=== PATIENT | female | born 1980 | race Caucasian/White ===

== ENCOUNTER → 2016-12-12 | Outpatient (CLI) | payer OTHER ==
[2015-12-08 10:17] VITALS: BP 128/78
[~2016-12-12] MED LIST: ALPR1TAB6 PO; AMIT25TA PO; DULO20CA PO; LISI1TAB3 PO; METO25TA2 PO; NORE0.356 PO; OMEP40CA5 PO; TRAZ100T12 PO
--- NOTE | 2016-12-12 14:01 | KCIC ---
DATE: 12/12/2016 EXAM: MAMMO ANDERSON SLIME SÁNCHEZAT, BREAST RIGHT HISTORY: Breast lump COMPARISON: None available This study was interpreted with the benefit of Computerized Aided Detection (CAD). FINDINGS: Breast Density: DENSE The breast Parenchyma is dense, which could reduce the sensitivity of mammography. Breast parenchyma level density D.. There is a nodule or cyst identified in the right breast at 7:00 o'clock position 1 cm from the nipple. Targeted ultrasound the right breast at this level demonstrates a round 5.7 mm simple appearing cyst with the posterior acoustic enhancement. IMPRESSION: Benign findings BI-RADS CATEGORY: 2 BENIGN FINDING RECOMMENDED FOLLOW-UP: CLIN FOLLOW UP IMAGING CLINICALLY INDICATED PQRS compliance statement: Patient information was entered into a reminder system with a target due date when patient is due for a screening mammogram for the next mammogram. Mammography is a sensitive method for finding small breast cancers, but it does not detect them all and is not a substitute for careful clinical examination. A negative mammogram does not negate a clinically suspicious finding and should not result in delay in biopsying a clinically suspicious abnormality. "Our facility is accredited by the [employer] Mammography Program."
== END | disposition home or self-care (01) ==
LOC: KCIC MAMMO 09:53
PROVIDERS: ATTEND Obstetrics & Gynecology
DX: N63.10 Unspecified lump in the right breast, unspecified quadrant (principal)
CPT/HCPCS: 76641; G0204; G0279; 77062; 77066

== ENCOUNTER 2018-12-24 19:02 | Emergency (ER) | payer OTHER ==
[~2018-12-24] VITALS: Ht 170.2 cm; Wt 115.7 kg
[~2018-12-24 19:02] MED LIST changes: +LISI1TAB23 PO; -LISI1TAB3 PO; +OMEP40CA45 PO; -OMEP40CA5 PO; +TRAZ-86 PO; -TRAZ100T12 PO
[2018-12-24] MEDS ORDERED: DEXAMETHASONE SOD PHOS 4 MG/ML VIAL IVP ONE (19:30)
[2018-12-24] MEDS ORDERED: IV NORMAL SALINE 1000ML BAG 1,000 ML IV ONE (19:30)
[2018-12-24] MEDS ORDERED: ONDANSETRON PF 4 MG/2 ML VIAL. IVP ONE (19:30)
[2018-12-24] MEDS ORDERED: diphenhydrAMINE 50 MG/ML VIAL IVP ONE (19:30)
[2018-12-24] MEDS ORDERED: KETOROLAC 15 MG/ML VIAL. IVP ONE (19:30)
[2018-12-24 19:59] LABS: BASO # 0.1 x10^3/uL (0.0-0.2); BASO % 1 % (0-3); EOS # 0.3 x10^3/uL (0.0-0.7); EOS % 4 % (0-3); HEMATOCRIT 43.4 % (36.0-47.0); HEMOGLOBIN 14.8 g/dL (12.0-15.5); LYMPH # 1.9 x10^3/uL (1.0-4.8); LYMPH % 24 % (24-48); MEAN CORPUSCULAR HEMOGLOBIN 34 pg (25-35); MEAN CORPUSCULAR HGB CONC 34 g/dL (31-37); MEAN CORPUSCULAR VOLUME 99 fL (79-100); MONO # 0.6 x10^3/uL (0.0-1.1); MONO % 7 % (0-9); NEUT # 5.3 x10^3/uL (1.8-7.7); NEUT % 65 % (31-73); PLATELET COUNT 224 x10^3/uL (140-400); RED BLOOD COUNT 4.38 x10^6/uL (3.50-5.40); RED CELL DISTRIBUTION WIDTH 14.1 % (11.5-14.5); WHITE BLOOD COUNT 8.3 x10^3/uL (4.0-11.0)
[2018-12-24 20:08] LABS: PROTHROMBIN TIME PATIENT 13.8 SEC (11.7-14.0)
[2018-12-24 20:09] LABS: CALCIUM 9.2 mg/dL (8.5-10.1); CREATININE 0.9 mg/dL (0.6-1.0); GFR 70.1; POTASSIUM 3.9 mmol/L (3.5-5.1)
[2018-12-24 20:15] LABS: ALBUMIN 3.3 g/dL (3.4-5.0); ALBUMIN/GLOBULIN RATIO 0.7 (1.0-1.7); MAGNESIUM 1.5 mg/dL (1.8-2.4); TOTAL BILIRUBIN 0.2 mg/dL (0.2-1.0)
[2018-12-24 20:24] LABS: CREATINE KINASE 34 U/L (26-192)
--- NOTE | 2018-12-24 21:00 | RAD ---
CT head without contrast dated 12/24/2018. No comparison available. Clinical data indication: Headache and right arm sensation change. TECHNIQUE: Contiguous axial imaging of the head was performed from skull base to vertex. No contrast administered. One or more of the following individualized dose reduction techniques were utilized for this examination: 1. Automated exposure control 2. Adjustment of the mA and/or kV according to patient size 3. Use of iterative reconstruction technique. FINDINGS: Enlargement of the bifrontal sulci, increased from prior study. Ventricles are stable in caliber. No midline shift or mass effect. There is a small linear band of low density in the parasagittal right parietal lobe that likely represents a remote cortical infarct. Brain parenchyma is of otherwise normal attenuation. No hemorrhage or extra-axial collection. Posterior fossa and brainstem unremarkable. Visualized paranasal sinuses and mastoid air cells are clear. No apparent calvarial abnormality. IMPRESSION: 1. No evidence of acute intracranial hemorrhage or mass. 2. 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 3. 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 Electronically signed by: Jerald Oneal MD (12/24/2018 8:57 PM) [facility]
--- NOTE | 2018-12-24 21:07 | PHYS DOC ---
Past Medical History Past Medical History: Anxiety, Depression, Hypertension, Migraines Past Surgical History: Hysterectomy, Tonsillectomy, Other Additional Past Surgical Histo: KNEE SURGERY, BRAIN BIOPSY, HERNIA SURGERY Additional Information: Nonsmoker Alcohol Use: None Drug Use: None Adult General Chief Complaint Chief Complaint: NEURO SYMPTOMS/DEFICITS HPI HPI 38-year-old female presents with 2 week history of intermittent headache. Patient does have a past medical history of migraine headaches. Patient reports history of chronic neck pain with recent fall striking her face. Patient also recently seen her PCP who thought she might have a sinus infection and recently started her on antibiotics (Augmentin). Patient reports today was having some increased pain in her neck and head combined with right hand tingling and numbness and had presented to the chiropractor for evaluation. Reports her chiropractor became concerned and sent patient to the ER for evaluation. Patient also with history of intracranial hemorrhage secondary to elevated blood pressure. Patient reports she has been compliant with her blood pressure medication and it typically has been doing well. Denies fever or chills. Review of Systems Review of Systems Constitutional: Denies fever or chills Eyes: Denies redness or eye pain HENT: Denies nasal congestion or sore throat Respiratory: Denies cough or shortness of breath Cardiovascular: Denies chest pain or palpitations GI: Denies abdominal pain, nausea, or vomiting : Denies dysuria or hematuria Musculoskeletal: Denies back pain or joint pain Integument: Denies rash or skin lesions Neurologic: Reports headache and numbness/tingling of right hand; denies focal weakness Complete systems were reviewed and found to be within normal limits, except as documented in this note. Current Medications Current Medications Current Medications Medications (Trade) Dose Ordered Sig/Joel Start Time Stop Time Status Last Admin Dose Admin Acetaminophen/ Butalbital/ Caffeine (Fioricet) 2 tab 1X ONCE 12/24/18 22:00 12/24/18 22:01 DC 12/24/18 21:49 2 TAB Dexamethasone Sodium Phosphate (Decadron) 10 mg 1X ONCE 12/24/18 19:30 12/24/18 19:41 DC 12/24/18 20:10 10 MG Diphenhydramine HCl (Benadryl) 25 mg 1X ONCE 12/24/18 19:30 12/24/18 19:41 DC 12/24/18 20:09 25 MG Ketorolac Tromethamine (Toradol 15mg Vial) 15 mg 1X ONCE 12/24/18 19:30 12/24/18 19:41 DC 12/24/18 20:10 15 MG Magnesium Sulfate 50 ml @ 25 mls/hr 1X ONCE 12/24/18 21:30 12/24/18 23:29 12/24/18 21:50 25 MLS/HR Ondansetron HCl (Zofran) 4 mg 1X ONCE 12/24/18 19:30 12/24/18 19:41 DC 12/24/18 20:09 4 MG Sodium Chloride 1,000 ml @ 1,000 mls/hr 1X ONCE 12/24/18 19:30 12/24/18 20:29 DC 12/24/18 20:08 1,000 MLS/HR Allergies Allergies Allergies Coded Allergies Type Severity Reaction Last Updated Verified morphine Allergy Intermediate 12/08/15 Yes prochlorperazine Allergy Intermediate 12/08/15 Yes Physical Exam Physical Exam Constitutional: Well developed, well nourished, no acute distress, non-toxic appearance HENT: Normocephalic, atraumatic, oropharynx moist Eyes: PERRL, EOMI, conjunctiva normal, no discharge, photophobia Neck: Normal range of motion, no midline tenderness, right parasternal tenderness noted, supple Cardiovascular: Heart rate tachycardic, regular rhythm Lungs & Thorax: Bilateral breath sounds clear to auscultation, no wheezing Abdomen: Soft, no tenderness Skin: Warm, dry, no erythema, no rash Extremities: No tenderness, ROM intact, no edema Neurologic: Alert and oriented X 3, normal motor function, decreased sensation to right hand in comparison to left, no focal deficits noted Psychologic: Affect anxious, judgement normal Current Patient Data Vital Signs Vital Signs Date Time Temp Pulse Resp B/P (MAP) Pulse Ox O2 Delivery O2 Flow Rate FiO2 12/24/18 22:11 99 18 94 12/24/18 19:15 98.2 170/109 (129) Room Air 98.2 Lab Values Laboratory Tests Test 12/24/18 19:51 12/24/18 21:00 White Blood Count 8.3 x10^3/uL (4.0-11.0) Red Blood Count 4.38 x10^6/uL (3.50-5.40) Hemoglobin 14.8 g/dL (12.0-15.5) Hematocrit 43.4 % (36.0-47.0) Mean Corpuscular Volume 99 fL (79-100) Mean Corpuscular Hemoglobin 34 pg (25-35) Mean Corpuscular Hemoglobin Concent 34 g/dL (31-37) Red Cell Distribution Width 14.1 % (11.5-14.5) Platelet Count 224 x10^3/uL (140-400) Neutrophils (%) (Auto) 65 % (31-73) Lymphocytes (%) (Auto) 24 % (24-48) Monocytes (%) (Auto) 7 % (0-9) Eosinophils (%) (Auto) 4 % (0-3) H Basophils (%) (Auto) 1 % (0-3) Neutrophils # (Auto) 5.3 x10^3/uL (1.8-7.7) Lymphocytes # (Auto) 1.9 x10^3/uL (1.0-4.8) Monocytes # (Auto) 0.6 x10^3/uL (0.0-1.1) Eosinophils # (Auto) 0.3 x10^3/uL (0.0-0.7) Basophils # (Auto) 0.1 x10^3/uL (0.0-0.2) Prothrombin Time 13.8 SEC (11.7-14.0) Prothrombin Time INR 1.1 (0.8-1.1) Activated Partial Thromboplast Time 28 SEC (24-38) Sodium Level 137 mmol/L (136-145) Potassium Level 3.9 mmol/L (3.5-5.1) Chloride Level 100 mmol/L (98-107) Carbon Dioxide Level 27 mmol/L (21-32) Anion Gap 10 (6-14) Blood Urea Nitrogen 11 mg/dL (7-20) Creatinine 0.9 mg/dL (0.6-1.0) Estimated GFR (Cockcroft-Gault) 70.1 BUN/Creatinine Ratio 12 (6-20) Glucose Level 205 mg/dL (70-99) H Calcium Level 9.2 mg/dL (8.5-10.1) Magnesium Level 1.5 mg/dL (1.8-2.4) L Total Bilirubin 0.2 mg/dL (0.2-1.0) Aspartate Amino Transferase (AST) 121 U/L (15-37) H Alanine Aminotransferase (ALT) 129 U/L (14-59) H Alkaline Phosphatase 138 U/L (46-116) H Creatine Kinase 34 U/L (26-192) Creatine Kinase MB (Mass) < 0.5 ng/mL (0.0-3.6) Creatine Kinase MB Relative Index % (0-4) Troponin I Quantitative < 0.017 ng/mL (0.000-0.055) Total Protein 8.0 g/dL (6.4-8.2) Albumin 3.3 g/dL (3.4-5.0) L Albumin/Globulin Ratio 0.7 (1.0-1.7) L Urine Collection Type Unknown Urine Color Yellow Urine Clarity Clear Urine pH 6.0 Urine Specific [place] 1.010 Urine Protein Negative mg/dL (NEG-TRACE) Urine Glucose (UA) Negative mg/dL (NEG) Urine Ketones (Stick) Negative mg/dL (NEG) Urine Blood Negative (NEG) Urine Nitrite Negative (NEG) Urine Bilirubin Negative (NEG) Urine Urobilinogen Dipstick 1.0 mg/dL (0.2 mg/dL) Urine Leukocyte Esterase Negative (NEG) Urine RBC 0 /HPF (0-2) Urine WBC 1-4 /HPF (0-4) Urine Squamous Epithelial Cells Mod /LPF Urine Bacteria Moderate /HPF (0-FEW) Laboratory Tests 12/24/18 19:51 Laboratory Tests 12/24/18 19:51 EKG EKG @1935 Sinus tachycardia at 118bpm, NO ST elevation, QRS 80ms, QT/QTc 306/431ms Radiology/Procedures Radiology/Procedures PROCEDURE: CT HEAD WO CONTRAST CT head without contrast dated 12/24/2018. No comparison available. Clinical data indication: Headache and right arm sensation change. TECHNIQUE: Contiguous axial imaging of the head was performed from skull base to vertex. No contrast administered. One or more of the following individualized dose reduction techniques were utilized for this examination: 1. Automated exposure control 2. Adjustment of the mA and/or kV according to patient size 3. Use of iterative reconstruction technique. FINDINGS: Enlargement of the bifrontal sulci, increased from prior study. Ventricles are stable in caliber. No midline shift or mass effect. There is a small linear band of low density in the parasagittal right parietal lobe that likely represents a remote cortical infarct. Brain parenchyma is of otherwise normal attenuation. No hemorrhage or extra-axial collection. Posterior fossa and brainstem unremarkable. Visualized paranasal sinuses and mastoid air cells are clear. No apparent calvarial abnormality. IMPRESSION: 1. No evidence of acute intracranial hemorrhage or mass. 2. 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 3. 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 Electronically signed by: Jerald Oneal MD (12/24/2018 8:57 PM) [facility] Course & Med Decision Making Course & Med Decision Making Pertinent Labs and Imaging studies reviewed. (See chart for details) Patient presents with intermittent headache 2 weeks with past medical history of migraine headaches. Patient also with history of chronic neck pain for which she receives chiropractic adjustments. Patient today now with right arm tingling and numbness. Patient reports headache worse. Patient neurologically intact with exception for sensation difference in right hand versus left. NIH SS 1. History of prior intracranial hemorrhage secondary to hypertension. Patients BP elevated upon arrival however patient very anxious and uncomfortable. Symptomatic treatment provided with interval improvement of blood pressure without antihypertensives. CT head without acute process. Labs obtained and posted to chart. Hypomagnesemia addressed. EKG stable. IV fluid hydration given. Patient with interval improvement of both headache and right arm numbness. Concern for possible cervical radiculopathy. Patient stable for discharge with outpatient follow-up with PCP/neurology/pain management. Neurology and pain management referrals provided. Discussed findings and plan with patient, who acknowledges understanding and agreement. Dragon Disclaimer Dragon Disclaimer This electronic medical record was generated, in whole or in part, using a voice recognition dictation system. Departure Departure Impression: Primary Impression: Headache Additional Impressions: Hypomagnesemia Radiculopathy of cervical spine Disposition: 01 HOME, SELF-CARE Condition: IMPROVED Referrals: GRICEL LEAL (PCP) DAVID MUNSON MD, BRIAN N MD Patient Instructions: Cervical Radiculopathy, [id number], Headache, FAQs, Hypomagnesemia Scripts Butalb/Acetaminophen/Caffeine ([id number] 50-325-40) 1 Each Tablet 1 EACH PO Q6HRS PRN for HEADACHE, #14 TAB Prov: JERALD BEARD DO 12/24/18 Orphenadrine Citrate (ORPHENADRINE CITRATE) 100 Mg Tablet.er 100 MG PO BID PRN for MUSCLE PAIN, #14 TAB Prov: JERALD BEARD DO 12/24/18 NIHSS Stroke Scale NIH Stroke Scale: NIH Stroke Scale Response (Comments) Value Level of Consciousness: 0 Alert/Responsive 0 LOC Questions: 0 Answers both correctly 0 LOC Commands: 0 Performs both tasks 0 Best Gaze: 0 Normal 0 Visual: 0 No visual loss 0 Facial Palsy: 0 Normal, symmetrical 0 Motor - Left Arm 0 No drift 0 Motor - Right Arm 0 No drift 0 Motor - Left Leg 0 No drift 0 Motor: Right Leg 0 No drift 0 Limb Ataxia: 0 Absent 0 Sensory: 1 Mid to moderate loss (right hand) 1 Best Language: 0 Normal 0 Dysathria: 0 Normal 0 Extinction and Inattention: 0 Normal 0 Total 1 Problem Qualifiers Primary Impression: Headache Headache type: unspecified Headache chronicity pattern: acute headache Intractability: not intractable Qualified Codes: R51 - Headache JERALD BEARD DO Dec 24, 2018 21:07
[2018-12-24 21:13] LABS: BILIRUBIN,URINE NEGATIVE (NEG); CLARITY,URINE CLEAR; COLOR,URINE YELLOW; NITRITE,URINE NEGATIVE (NEG); PROTEIN,URINE NEGATIVE (NEG-TRACE)
[2018-12-24 21:19] LABS: BACTERIA,URINE MODERATE /HPF (0-FEW); RBC,URINE 0 /HPF (0-2); SQUAMOUS EPITHELIAL CELL,UR MOD /LPF
[2018-12-24] MEDS ORDERED: MAGNESIUM SULFATE 2GM 50 ML IV ONE (21:30)
[2018-12-24] MEDS ORDERED: ORPH100T PO (21:35)
[2018-12-24] MEDS ORDERED: BUTA1TAB23 PO (21:35)
[2018-12-24] MEDS ORDERED: BUTALB/APAP/CAFEIN 50/325/40MG TABLET. PO ONE (22:00)
[2018-12-24 22:11] VITALS: BP 155/93
--- NOTE | 2018-12-25 07:07 | EKG ---
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
== END 2018-12-24 22:52 | disposition home or self-care (01) ==
LOC: ER 19:02
DX: G43.909 Migraine, unspecified, not intractable, without status migrainosus (principal); M54.12 Radiculopathy, cervical region; E83.42 Hypomagnesemia; G89.29 Other chronic pain; I10 Essential (primary) hypertension; F41.9 Anxiety disorder, unspecified; F32.9 Major depressive disorder, single episode, unspecified; Z88.5 Allergy status to narcotic agent; Z88.8 Allergy status to other drugs, medicaments and biological substances
CPT/HCPCS: 36415; 70450; 80053; 81001; 82553; 83735; 84484; 85025; 85610; 85730; 87086; 93005; 96365; 96375; 99285; J1100; J1200; J1885; J2405; J3475; J7030

== ENCOUNTER → 2019-01-26 | Outpatient (CLI) | payer OTHER ==
[~2019-01-26] MED LIST changes: +BUTA1TAB23 PO; +ORPH100T PO
[2019-01-26 16:05] LABS: BASO # 0.1 x10^3/uL (0.0-0.2); BASO % 1 % (0-3); EOS # 0.3 x10^3/uL (0.0-0.7); EOS % 3 % (0-3); HEMATOCRIT 43.3 % (36.0-47.0); HEMOGLOBIN 14.9 g/dL (12.0-15.5); LYMPH % 22 % (24-48); MEAN CORPUSCULAR HEMOGLOBIN 34 pg (25-35); MEAN CORPUSCULAR HGB CONC 34 g/dL (31-37); MEAN CORPUSCULAR VOLUME 99 fL (79-100); MONO # 0.7 x10^3/uL (0.0-1.1); MONO % 7 % (0-9); NEUT % 66 % (31-73); PLATELET COUNT 235 x10^3/uL (140-400); RED BLOOD COUNT 4.38 x10^6/uL (3.50-5.40); RED CELL DISTRIBUTION WIDTH 13.9 % (11.5-14.5)
[2019-01-26 16:15] LABS: BARBITURATES NEG (NEG); BENZODIAZEPINES POS (NEG); CANNABINOIDS NEG (NEG); COCAINE NEG (NEG); METHADONE NEG (NEG); OPIATES NEG (NEG); PHENCYCLIDINE NEG (NEG)
[2019-01-26 16:17] LABS: AMPHETAMINE/METHAMPHETAMINE NEG (NEG)
[2019-01-26 16:30] LABS: ALBUMIN 3.2 g/dL (3.4-5.0); ALBUMIN/GLOBULIN RATIO 0.7 (1.0-1.7); CREATININE 0.7 mg/dL (0.6-1.0); GFR 93.6; TOTAL BILIRUBIN 0.2 mg/dL (0.2-1.0); TOTAL PROTEIN 7.8 g/dL (6.4-8.2)
== END | disposition home or self-care (01) ==
LOC: LAB 15:38
PROVIDERS: ATTEND Psychiatry & Neurology Neurology
DX: G43.111 Migraine with aura, intractable, with status migrainosus (principal); G93.2 Benign intracranial hypertension
CPT/HCPCS: 36415; 80053; 80307; 84443; 85025; 85651

== ENCOUNTER 2020-11-14 18:50 | Emergency (ER) | payer BC, OTHER ==
[~2020-11-14] VITALS: Ht 170.2 cm; Wt 138.0 kg
[~2020-11-14 18:50] MED LIST changes: +NORE0.3550 PO; -NORE0.356 PO; -OMEP40CA45 PO; +OMEP40CA7 PO; +TRAZ-123 PO; -TRAZ-86 PO
[2020-11-14] MEDS ORDERED: DIPH,PERTUSS(ACELL),TET VAC/PF 0.5 ML SYRINGE. VAX IM ONE (19:30)
[2020-11-14] MEDS ORDERED: LIDOCAINE 1% PF 2 ML VIAL. INJ ONE (19:30)
[2020-11-14] MEDS ORDERED: fentaNYL PF VIAL 100 MCG/2 ML VIAL IM ONE (19:30)
[2020-11-14] MEDS ORDERED: BUPIVACAINE MPF 0.5% 30 ML VIAL. INJ ONE (19:30)
--- NOTE | 2020-11-14 20:24 | RAD ---
Study: XR FINGER(S)_RIGHT 2+VIEWS Indication: Finger tip laceration. Comparison: None. Findings: Acute, comminuted fracture through the tuft of the index distal phalanx. The distal aspect of the tuf t is displaced by between 2 and 3 mm distally. Laceration of the surrounding soft tissues. No fractur e is identified elsewhere. No malalignment across the adjacent DIP joint. No retained metallic foreig n body noting overlying bandaging material. Impression: Laceration injury to the distal index finger with transection through the tuft. The distal aspect of the tuft is displaced distally by a few millimeters and the fracture is comminuted with punctate tim cent fragments. Electronically signed by: CORNELL FLOWERS MD (11/14/2020 8:22 PM) [facility]
[2020-11-14] MEDS ORDERED: PIPERACILLIN/TAZOBACTAM 3.375 GM in IV NORMAL SALINE 50ML 50 ML IV ONE (21:30)
[2020-11-14] MEDS ORDERED: CEPH500T PO (22:38)
[2020-11-14] MEDS ORDERED: OXYC5CAP PO (22:38)
--- NOTE | 2020-11-14 22:40 | PHYS DOC ---
Past Medical History Past Medical History: Anxiety, Depression, Hypertension, Migraines Additional Past Medical Histor: BRAIN BLEED Past Surgical History: Hysterectomy, Tonsillectomy, Other Additional Past Surgical Histo: KNEE SURGERY, BRAIN BIOPSY, HERNIA SURGERY Smoking Status: Current Every Day Smoker Alcohol Use: Heavy Drug Use: None General Adult EDM: Chief Complaint: LACERATION/AVULSION HPI: HPI: Patient is a 40 year old right-handed female who presents to the ED today with right index finger laceration, patient states she was helping the mother cut some tree branches, the mother accidentally cut her with jonelle. Review of Systems: Review of Systems: Constitutional: Denies fever or chills. [] Integument: Reports right index finger laceration Neurologic: Denies headache, focal weakness or sensory changes. [] Psychiatric: Denies depression or anxiety. [] Heart Score: C/O Chest Pain: N/A Risk Factors: Risk Factors: DM, Current or recent (<one month) smoker, HTN, HLP, family history of CAD, obesity. Risk Scores: Score 0 - 3: 2.5% MACE over next 6 weeks - Discharge Home Score 4 - 6: 20.3% MACE over next 6 weeks - Admit for Clinical Observation Score 7 - 10: 72.7% MACE over next 6 weeks - Early Invasive Strategies Current Medications: Current Medications Medications (Trade) Dose Ordered Sig/Joel Start Time Stop Time Status Last Admin Dose Admin Bupivacaine HCl (Sensorcaine Mpf 0.5%) 30 ml 1X ONCE 11/14/20 19:30 11/14/20 19:31 DC 11/14/20 20:18 30 ML Diphtheria/ Tetanus/Acell Pertussis (ADACEL TDap SYRINGE) 0.5 ml ONCE ONCE 11/14/20 19:30 11/14/20 19:31 DC 11/14/20 20:20 0.5 ML Fentanyl Citrate (Fentanyl 2ml Vial) 50 mcg 1X ONCE 11/14/20 19:30 11/14/20 19:31 DC 11/14/20 20:17 50 MCG Lidocaine HCl (Xylocaine-Mpf 1% 2ml Vial) 2 ml 1X ONCE 11/14/20 19:30 11/14/20 19:31 DC 11/14/20 20:18 2 ML Piperacillin Sod/ Tazobactam Sod 3.375 gm/Sodium Chloride 50 ml @ 100 mls/hr 1X ONCE 11/14/20 21:30 11/14/20 21:59 DC 11/14/20 21:42 100 MLS/HR Allergies: Allergies: Allergies Coded Allergies Type Severity Reaction Last Updated Verified morphine Allergy Intermediate 12/08/15 Yes prochlorperazine Allergy Intermediate 12/08/15 Yes Physical Exam: PE: Constitutional: Well developed, well nourished, no acute distress, non-toxic appearance. [] Skin: Distal end of the right index finger with an avulsion type laceration cutting through the nailbed on ventral and dorsal aspects of the finger, laceration approximately 8 cm. There is no obvious tendon involvement. Patient can flex and extend the right index finger. Adequate radial sensation to the right index finger. +2 right radial pulse. Cap refill less than 2 seconds the right index finger. Back: No tenderness, no CVA tenderness. [] Extremities: No tenderness, no cyanosis, no clubbing, ROM intact, no edema. [] Neurologic: Alert and oriented X 3, normal motor function, normal sensory function, no focal deficits noted. [] Psychologic: Affect normal, judgement normal, mood normal. [] Current Patient Data: Vital Signs: Vital Signs Date Time Temp Pulse Resp B/P (MAP) Pulse Ox O2 Delivery O2 Flow Rate FiO2 11/14/20 18:59 97.8 128 16 151/88 (109) 95 97.8 EKG: EKG: [] Radiology/Procedures: Radiology/Procedures: []PROCEDURE: FINGER(S) RIGHT Study: XR FINGER(S)_RIGHT 2+VIEWS Indication: Finger tip laceration. Comparison: None. Findings: Acute, comminuted fracture through the tuft of the index distal phalanx. The distal aspect of the tuft is displaced by between 2 and 3 mm distally. Laceration of the surrounding soft tissues. No fracture is identified elsewhere. No malalignment across the adjacent DIP joint. No retained metallic foreign body noting overlying bandaging material. Impression: Laceration injury to the distal index finger with transection through the tuft. The distal aspect of the tuft is displaced distally by a few millimeters and the fracture is comminuted with punctate adjacent fragments. Electronically signed by: CORNELL FLOWERS MD (11/14/2020 8:22 PM) [facility] DICTATED and SIGNED BY: CORNELL FLOWERS MD DATE: 11/14/20 [id number] Laceration/Wound Repair Laceration/Wound Repair : [] Wound Location: Right index finger laceration Wound's Depth, Shape: Skin avulsion Wound Length (cm): Approximately 8 cm Wound Explored: clean Irrigated w/ Saline (ccs): 1000 Betadine Prep?: Yes Anesthesia: 1% of lidocaine and 0.5% of bupivacaine Volume Anesthetic (ccs): Roughly 20 cc Wound Repaired With: Vicryl Suture Size/Type: 4.0/interrupted sutures Number of Sutures: 19 Progress : Wound was covered with nonstick dressing and finger splint applied by me. Neurovascular exam is intact post splinting. Course & Med Decision Making: Course & Med Decision Making Pertinent Labs and Imaging studies reviewed. (See chart for details) This is a 40-year-old female patient presenting to the ED today with right index finger laceration. Right index finger x-rays were noted for displaced right index finger tuft fracture. I spoke with Dr. Vivas orthopedic doctor. He requested we clean the wound, close it and patient can follow-up with his clinic. Tetanus was updated. Patient's laceration was closed by me as noted in procedures. She was given Zosyn IV in the ED and discharged on cephalexin. She was instructed to contact the orthopedic doctor tomorrow and set up a follow-up appointment. Angelita Disclaimer: Angelita Disclaimer: This electronic medical record was generated, in whole or in part, using a voice recognition dictation system. Departure Departure Impression: Primary Impression: Open fracture of tuft of distal phalanx of finger Disposition: 01 HOME / SELF CARE / HOMELESS Condition: STABLE Referrals: GRICEL LEAL (PCP) EDIE VIVAS DO Please call his office in [facility] and set up a follow up appointment Patient Instructions: Finger Fracture, [id number] Additional Instructions: You have right index finger fracture. Please contact the provided orthopedic doctor tomorrow morning and set up a follow-up appointment. We will send a prescription for pain medicine and antibiotics to [facility]. Take them as prescribed. Keep the area clean and dry. Scripts Oxycodone Hcl (OXYCODONE HCL) 5 Mg Capsule 5 MG PO PRN Q6HRS PRN for PAIN, #30 TAB 0 Refills Prov: LEI ESPINOZA APRN 11/14/20 Cephalexin (CEPHALEXIN) 500 Mg Tablet 1 TAB PO QID, #40 TAB Prov: LEI ESPINOZA APRN 11/14/20 LEI ESPINOZA APRN Nov 14, 2020 22:40
[2020-11-14] MEDS ORDERED: oxyCODONE IR 5 MG TABLET PO ONE (23:00)
[2020-11-14 23:15] VITALS: BP 144/79
== END 2020-11-14 23:15 | disposition home or self-care (01) ==
LOC: ER 18:50
DX: S61.210A Laceration without foreign body of right index finger without damage to nail, initial encounter (principal); G43.909 Migraine, unspecified, not intractable, without status migrainosus; I10 Essential (primary) hypertension; F17.200 Nicotine dependence, unspecified, uncomplicated; Y28.8XXA Contact with other sharp object, undetermined intent, initial encounter; Y93.89 Activity, other specified; Y92.89 Other specified places as the place of occurrence of the external cause; Y99.8 Other external cause status
CPT/HCPCS: 12004; 73140; 90471; 90715; 96365; 96372; 99284; J2543; J3010; J3490